=== PATIENT | female | born 1995 | race African-American/Black ===

== ENCOUNTER 2016-09-14 14:43 | Emergency (ER) | payer OTHER ==
[~2016-09-14] VITALS: Ht 170.2 cm; Wt 66.0 kg
[~2016-09-14 14:43] MED LIST: UNK ANTIBIOTIC PO
[2016-09-14 14:45] VITALS: BP 98/64
== END 2016-09-14 15:42 | disposition left against medical advice (07) ==
LOC: EMS 14:47 → EEVIPCON 14:47 → EMS 15:42
DX: Z04.3 Encounter for examination and observation following other accident (principal); Z53.21 Procedure and treatment not carried out due to patient leaving prior to being seen by health care provider

== ENCOUNTER 2017-01-12 16:42 | Emergency (ER) | payer OTHER ==
[~2017-01-12] VITALS: Ht 170.2 cm; Wt 57.3 kg
[2017-01-12] MEDS ORDERED: METR500 PO (16:51)
[2017-01-12] MEDS ORDERED: CEPH500 PO (16:51)
[2017-01-12] MEDS ORDERED: TraMADol HCL 50 MG TABLET PO ONE (17:45)
[2017-01-12] MEDS ORDERED: ONDANSETRON HCL 4 MG TABLET PO ONE (17:45)
[2017-01-12] MEDS ORDERED: KETOROLAC TROMETHAMINE 30 MG/ML VIAL IM ONE (19:00)
[2017-01-12 19:09] VITALS: BP 120/65
== END 2017-01-12 19:32 | disposition home or self-care (01) ==
LOC: EMS 16:44
DX: M79.601 Pain in right arm (principal); H92.02 Otalgia, left ear; R11.2 Nausea with vomiting, unspecified; F12.90 Cannabis use, unspecified, uncomplicated
CPT/HCPCS: 96372; 99283; J1885; Q0162

== ENCOUNTER 2021-02-25 20:43 | Emergency (ER) | payer MEDICAID, OTHER ==
[~2021-02-25] VITALS: Ht 170.2 cm; Wt 68.2 kg
[~2021-02-25 20:43] MED LIST changes: +CEPH500C3 PO; +METR500 PO; -UNK ANTIBIOTIC PO
[2021-02-25] MEDS ORDERED: AZITHROMYCIN 500 MG TABLET PO ONE (23:15)
[2021-02-25] MEDS ORDERED: CefTRIAXone SODIUM 1 GM/VIAL IM ONE (23:15)
[2021-02-25] MEDS ORDERED: LIDOCAINE/PF 1% 2 ML VIAL IM ONE (23:15)
[2021-02-25 23:27] LABS: APPEARANCE,URINE CLEAR (CLEAR); BILIRUBIN,URINE NEGATIVE (NEGATIVE); GLUCOSE, URINE (UA) NEGATIVE (NEGATIVE); KETONES,URINE NEGATIVE (NEGATIVE); LEUKOCYTE ESTERASE ,URINE MODERATE (NEGATIVE); NITRATE,URINE NEGATIVE (NEGATIVE); OCCULT BLOOD,URINE SMALL (NEGATIVE); PROTEIN,URINE NEGATIVE (NEGATIVE); UROBILINOGEN,URINE 0.2 mg/dL (<=1.0)
[2021-02-25] MEDS ORDERED: ONDANSETRON HCL 4 MG TABLET PO ONE (23:30)
[2021-02-25 23:51] LABS: BACTERIA,URINE Few /HPF (None Seen); RBC,URINE 0-2 /HPF (0-2)
[2021-02-26 00:45] VITALS: BP 114/62
== END 2021-02-26 00:47 | disposition home or self-care (01) ==
LOC: EMS 23:00
DX: N39.0 Urinary tract infection, site not specified (principal); F12.90 Cannabis use, unspecified, uncomplicated
CPT/HCPCS: 81001; 84703; 87491; 87591; 96372; 99283; A9575; J0696; J3490; Q0162